=== PATIENT | male | born 1950 | race Hispanic/Latino ===

== ENCOUNTER 2019-10-06 10:22 | Observation (INO) | payer OTHER, MEDICARE ==
[~2019-10-06] VITALS: Ht 167.6 cm; Wt 88.4 kg
[2019-10-06 11:24] LABS: BASOPHILS % (AUTO) 0.3 % (0.0-5.0); EOSINOPHILS % (AUTO) 0.2 % (0.0-8.0); HEMATOCRIT 44.8 % (42-54); LYMPHOCYTES % (AUTO) 10.2 % (21.0-51.0); MEAN CORPUSCULAR HEMOGLOBIN 34.4 pg (27.0-33.0); MEAN CORPUSCULAR HGB CONC 33.6 g/dL (32.0-36.0); MEAN CORPUSCULAR VOLUME 102.3 fL (79-99); MONOCYTES % (AUTO) 6.6 % (3.0-13.0); NEUTROPHILS % (AUTO) 82.7 % (40.0-77.0); PLATELET COUNT (AUTO) 186 K/uL (130-400); RED BLOOD CELL COUNT(AUTO) 4.38 MIL/uL (4.50-6.20); RED CELL DISTRIBUTION WIDTH 14.2 % (11.0-15.5); WHITE BLOOD COUNT (AUTO) 18.4 K/uL (4.8-10.8)
[2019-10-06 11:40] LABS: APPEARANCE,URINE CLOUDY (CLEAR); BILIRUBIN,URINE NEGATIVE (NEGATIVE); COLOR,URINE YELLOW (YELLOW); GLUCOSE, URINE (UA) 100 mg/dL (NEGATIVE); KETONES,URINE NEGATIVE (NEGATIVE); LEUKOCYTE ESTERASE ,URINE MODERATE (NEGATIVE); NITRATE,URINE POSITIVE (NEGATIVE); OCCULT BLOOD,URINE LARGE (NEGATIVE); PROTEIN,URINE 100 mg/dL (NEGATIVE)
[2019-10-06 11:41] LABS: CREATININE 1.2 mg/dL (0.5-1.5); POTASSIUM 3.9 mmol/L (3.5-5.1)
[2019-10-06 11:45] LABS: ALBUMIN 3.4 g/dL (3.5-5.0); BILIRUBIN,DIRECT 0.3 mg/dL (0.0-0.3); BILIRUBIN,TOTAL 1.2 mg/dL (0.2-1.0); TOTAL PROTEIN, SERUM 7.5 g/dL (6.0-8.3)
[2019-10-06 13:01] LABS: BACTERIA,URINE Many /HPF (None Seen); RBC,URINE 51-100 /HPF (0-1); WBC,URINE >100 /HPF (0-1)
[2019-10-06 13:02] LABS: SQUAMOUS EPITHELIAL CELL,UR Rare /HPF (0-2)
[2019-10-06] MEDS ORDERED: ACETAMINOPHEN 325 MG TAB ONE (17:13)
[2019-10-06] MEDS ORDERED: CEFTRIAXONE SODIUM 1 GM ONE (18:41)
[2019-10-06 21:00] VITALS: BP 112/66
[2019-10-06] MEDS ORDERED: SODIUM CHLORIDE 0.9% 10 ML VIAL IVP SCH (21:00)
[2019-10-06] MEDS ORDERED: ONDANSETRON HCL 4 MG/2 ML VIAL IVP PRN (21:00)
[2019-10-06] MEDS ORDERED: ACETAMINOPHEN 325 MG TAB PO PRN (21:00)
[2019-10-06] MEDS ORDERED: DIPHENHYDRAMINE HCL 25 MG CAPSULE PO PRN (21:00)
[2019-10-06] MEDS ORDERED: GUAIFENESIN SUGAR-FREE 100 MG/5 ML UDCUP PO PRN (21:00)
[2019-10-06] MEDS ORDERED: ZOLPIDEM TARTRATE 5 MG TAB PO PRN (21:00)
[2019-10-06] MEDS ORDERED: PREG100C PO (22:23)
[2019-10-06] MEDS ORDERED: MULT-1296 PO (22:23)
[2019-10-06] MEDS ORDERED: TRAM50TA4 PO (22:23)
[2019-10-06] MEDS ORDERED: BUSP10TA3 PO (22:23)
[2019-10-06] MEDS ORDERED: CLOP75TA14 PO (22:23)
[2019-10-06] MEDS ORDERED: FENO54TA6 PO (22:23)
[2019-10-06] MEDS ORDERED: PRAV20TA4 PO (22:23)
[2019-10-06] MEDS ORDERED: LISI10TA7 PO (22:23)
[2019-10-06] MEDS ORDERED: INSU100V37 SQ (22:23)
[2019-10-06] MEDS ORDERED: METF500S7 PO ×2 (22:23→22:25)
[2019-10-06] MEDS ORDERED: DULA1.5P SQ (22:23)
[2019-10-06] MEDS ORDERED: METF-445 PO (22:25)
[2019-10-06] MEDS ORDERED: METF-444 PO (22:25)
--- NOTE | 2019-10-06 22:33 | NUR ---
RENETTA ARCOS Pt arrived with renetta arcos from ,secured with statlock. Addendum: 10/06/19 at 2235 by CLAUDETTE LAL RN RN Amended: Links added.
[2019-10-06] MEDS ORDERED: TRAMADOL HCL 50 MG TABLET PO PRN (22:45)
[2019-10-07] VITALS: BP 125/75
[2019-10-07 03:55] VITALS: BP 117/67
[2019-10-07 04:16] LABS: HEMATOCRIT 40.7 % (42-54); MEAN CORPUSCULAR HEMOGLOBIN 35.4 pg (27.0-33.0); MEAN CORPUSCULAR HGB CONC 34.2 g/dL (32.0-36.0); MEAN CORPUSCULAR VOLUME 103.5 fL (79-99); PLATELET COUNT (AUTO) 161 K/uL (130-400); RED BLOOD CELL COUNT(AUTO) 3.93 MIL/uL (4.50-6.20); RED CELL DISTRIBUTION WIDTH 14.3 % (11.0-15.5); WHITE BLOOD COUNT (AUTO) 15.8 K/uL (4.8-10.8)
[2019-10-07 04:33] LABS: BILIRUBIN,DIRECT 0.2 mg/dL (0.0-0.3); BILIRUBIN,TOTAL 0.9 mg/dL (0.2-1.0); CREATININE 1.2 mg/dL (0.5-1.5); POTASSIUM 3.5 mmol/L (3.5-5.1); TOTAL PROTEIN, SERUM 7.1 g/dL (6.0-8.3)
[2019-10-07 08:00] VITALS: BP 115/67
[2019-10-07] MEDS: METFORMIN HCL 500 MG TABLET PO SCH ×3 (08:57→18:05)
[2019-10-07] MEDS ORDERED: ATORVASTATIN CALCIUM 10 MG TABLET PO SCH (09:00)
[2019-10-07] MEDS ORDERED: MULTIVITAMINS/MINERALS/IRO TAB PO SCH (09:00)
[2019-10-07] MEDS ORDERED: **HM** FENOFIBRATE 54MG PO SCH (09:00)
[2019-10-07] MEDS ORDERED: CLOPIDOGREL BISULFATE 75 MG TAB PO SCH (09:00)
[2019-10-07] MEDS ORDERED: LISINOPRIL 10 MG TABLET PO SCH (09:00)
[2019-10-07] MEDS ORDERED: TRESIBA 100 UNIT SQ SCH (09:00)
[2019-10-07] MEDS ORDERED: PREGABALIN 100 MG CAPSULE PO SCH (09:00)
[2019-10-07] MEDS ORDERED: BUSPIRONE HCL 5 MG TABLET PO SCH (09:00)
[2019-10-07 12:10] VITALS: BP 115/64
--- NOTE | 2019-10-07 15:00 | NUR ---
PATIENT VOIDING ON OWN POST PACKER CATH REMOVAL FIRST OUTPUT 200ML.. AWARE
[2019-10-07 16:00] VITALS: BP 93/55
[2019-10-07 17:36] VITALS: BP 98/56
--- NOTE | 2019-10-07 17:52 | NUR ---
PER OK TO DISCHARGE AFTER TODAYS ROCEPHIN 1800 DOSE , PATIENT TO FOLLOW UP IN OFFICE TOMORROW FOR ANTIBIOTICS AND WILL F/U ON URINE CULTURES WELL
[2019-10-07] MEDS ORDERED: CEFTRIAXONE SODIUM 1 GM IVP SCH (18:00)
--- NOTE | 2019-10-07 18:32 | NUR ---
discharge instruction provided to patient , informed him he will need to see dr neumann tomorrow for f/u on infection and get a prescription per doctor
[2019-10-13] MEDS ORDERED: **HM** TRULICITY 1.5MG SQ SCH (09:00)
== END 2019-10-07 18:20 | disposition home or self-care (01) ==
LOC: EDH 10:22 → EDHIP 10:23 → 4CH 20:33
PROVIDERS: ADMIT Internal Medicine; ATTEND Internal Medicine
DX: N39.0 Urinary tract infection, site not specified (principal); R33.9 Retention of urine, unspecified; I11.0 Hypertensive heart disease with heart failure; I50.9 Heart failure, unspecified; E11.40 Type 2 diabetes mellitus with diabetic neuropathy, unspecified; E78.5 Hyperlipidemia, unspecified; E78.00 Pure hypercholesterolemia, unspecified; F32.9 Major depressive disorder, single episode, unspecified; Z79.02 Long term (current) use of antithrombotics/antiplatelets; Z79.84 Long term (current) use of oral hypoglycemic drugs; Z79.899 Other long term (current) drug therapy
CPT/HCPCS: 36415 ×2; 76770; 80048; 80053; 80076 ×2; 81001; 82948 ×2; 85025; 85027; 87077; 87088; 87186; 96374; 99284; G0378 ×31; J0696 ×2